=== PATIENT | female | born 1975 | race Caucasian/White ===

== ENCOUNTER 2018-03-01 21:30 | Observation (INO) ==
[2018-03-01] MEDS ORDERED: 0.9 % Sodium Chloride 1,000 ML IVC ONE (22:32)
--- NOTE | 2018-03-01 22:32 | Emergency Department Note ---
Disposition Clinical Impression: Neck pain, Intractable pain Pneumonia Qualifiers: Pneumonia type: due to unspecified organism Laterality: bilateral Lung location : unspecified part of lung Qualified Code(s): J18.9 - Pneumonia, unspecified organism Urinary tract infection Qualifiers: Urinary tract infection type: acute cystitis Hematuria presence: without hematuria Qualified Code(s): N30.00 - Acute cystitis without hematuria Syncope Qualifiers: Syncope type: unspecified Qualified Code(s): R55 - Syncope and collapse Disposition: Admitted As Inpatient Condition: Fair Referrals: NONE,PCP [Primary Care Provider] - Forms: ED Satisfaction Letter Time of Disposition: 01:13 General Adult HPI - General Chief complaint: ED Neck Pain/Injury Stated complaint: Arm and neck pain Time Seen by Provider: 03/01/18 21:32 Source: patient, EMS Limitations: no limitations Nursing Notes Reviewed: Yes Vital Signs Reviewed: Yes - History of Present Illness HPI Narrative: 42-year-old female presents emergency department 2 days after having an episode where she states she passed out possibly. She does not really remember what happened. States that she has upper thoracic paraspinal back pain that radiates into her neck. No fevers. Patient does not know why she passes out. Pain Scale: 7 - Related Data Previous Rx's Medication Instructions Recorded Hydrocodone/Acetaminophen [[place] 1 tab PO Q6H PRN #8 tab 06/20/16 5-325 Tablet] Naproxen [Naprosyn] 500 mg PO BID PRN #15 tablet 06/20/16 Allergies Allergy/AdvReac Type Severity Reaction Status Date / Time sulfamethoxazole AdvReac Shakiness Verified 06/20/16 12:24 [From Bactrim] trimethoprim [From Bactrim] AdvReac Shakiness Verified 06/20/16 12:24 All systems ED: reviewed and negative except as stated. 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 Absent: respiratory distress, accessory muscle use - Cardiovascular Cardiovascular exam: Present: tachycardia - Abdominal Exam Abdominal exam: Present: soft, Non-Tender. Absent: distention, guarding, rebound, rigidity - Extremities Exam Extremities exam: Present: normal capillary refill - Back Exam Back exam: Present: other (Left paraspinal thoracic tenderness to palpation, pain out of proportion) - Neurological Exam Neurological exam: Present: alert, oriented X3 - Psychiatric Psychiatric exam: Present: normal affect, normal mood - Skin Skin exam: Present: warm, dry, intact Course Vital Signs Temperature 98.2 F 03/01/18 21:34 Pulse Rate 110 03/01/18 21:34 Respiratory Rate 18 03/01/18 21:34 Blood Pressure 126/80 03/01/18 21:34 O2 Sat by Pulse Oximetry 98 03/01/18 21:34 Temperature 98.2 F 03/01/18 21:34 Pulse Rate 92 03/02/18 00:47 Respiratory Rate 18 03/02/18 00:47 Blood Pressure 143/106 03/02/18 00:47 O2 Sat by Pulse Oximetry 93 03/02/18 00:47 Oxygen Delivery Oxygen Delivery Room Air Medical Decision Making - [facility] Narrative Medical decision making narrative: 42-year-old female presents emergency department with concern for recurrent syncope, falls, with thoracic back pain as well as cervical neck pain. Patient hemodynamically stable. She appears uncomfortable in the room and she is crying. Reported history of breast cancer. Her currently obtaining a CT scan of the head without contrast. We will also obtain CT scan of the cervical , thoracic, lumbar spine. Obtained EKG. Did not reveal any evidence of arrhythmia, [id number]-[id number]-[id number] syndrome, Brugada syndrome, hypertrophic cardiomyopathy QT prolongation. It did however, reveal changes including Q waves in 1 and AVL as well as new T-wave inversions are as well. Patient not reporting any chest pain. Troponin is not elevated. Head CT did not reveal any acute intracranial abnormality. Cervical spine CT did not reveal any acute abnormality, third thoracic spine was negative, lumbar spine was negative. CT of the chest reveals bilateral airspace disease that appeared to worse in the right middle upper lobe. Patient also had evidence of urinary tract infection. We obtain a urine culture. We will also obtain blood cultures. We will treat patient with Rocephin and azithromycin. Patient agrees to admission for recurrent syncopal episodes, pneumonia, urinary tract infection, back pain. Dr. Castañeda agrees to accept her. Cervical Spine CT 03/01/18 22:24 IMPRESSION: Cervical spine: No acute abnormality of the cervical spine. Thoracic spine: No acute abnormality of the thoracic spine. Mild right upper lobe airspace disease will be discussed on separate chest CT report. Lumbar spine: No acute abnormality of the lumbar spine. D/ / Julio Pennington MD / Julio Pennington MD Interpreting Provider: Julio Pennington MD Head CT 03/01/18 22:24 IMPRESSION: No acute intracranial abnormality. D/ / Cresencio Patino MD / Cresencio Patino MD Interpreting Provider: Cresencio Patino MD Thoracic Spine CT 03/01/18 22:24 IMPRESSION: Cervical spine: No acute abnormality of the cervical spine. Thoracic spine: No acute abnormality of the thoracic spine. Mild right upper lobe airspace disease will be discussed on separate chest CT report. Lumbar spine: No acute abnormality of the lumbar spine. D/ / Julio Pennington MD / Julio Pennington MD Interpreting Provider: Julio Pennington MD Chest CT 03/01/18 22:28 IMPRESSION: Bilateral airspace disease, worse in the right upper lobe. Findings are suspicious for pneumonia. Consider short interval follow-up chest CT within 3 months or when acute issues have resolved. D/ / Julio Pennington MD / Julio Pennington MD Interpreting Provider: Julio Pennington MD Lumbar Spine CT 03/01/18 22:28 IMPRESSION: Cervical spine: No acute abnormality of the cervical spine. Thoracic spine: No acute abnormality of the thoracic spine. Mild right upper lobe airspace disease will be discussed on separate chest CT report. Lumbar spine: No acute abnormality of the lumbar spine. D/ / Julio Pennington MD / Julio Pennington MD Interpreting Provider: Julio Pennington MD - Lab Data Result diagrams: 03/02/18 00:32 03/02/18 00:32 Lab Results 03/02/18 03/02/18 03/02/18 Range/Units 00:28 00:32 00:32 WBC 6.1 (4.3-11.1) K/mcL RBC 4.09 (3.82-4.97) M/mcL Hgb 12.2 (11.5-15.4) g/dL Hct 37.5 (35.3-44.9) % MCV 91.7 (83.0-100.0) fL MCH 29.8 (28.0-33.3) pg MCHC 32.5 (31.6-35.5) g/dL RDW 13.1 (11.5-14.5) % Plt Count 211 (140-400) K/mcL MPV 11.2 (9.4-12.4) fL Immature Gran % 0.2 (0-4) % Seg Neutrophils % 57.4 % Lymphocytes % 33.4 % Monocytes % 6.7 % Eosinophils % 1.8 % Basophils % 0.5 % Neutrophils # 3.5 (1.6-8.9) K/mcL Lymphocytes # 2.1 (0.6-4.6) K/mcL Monocytes # 0.4 (0.0-1.3) K/mcL Eosinophils # 0.1 (0.0-0.6) K/mcL Basophils # 0.0 (0.0-0.2) K/mcL Sodium 143 (136-145) mEq/L Potassium 3.8 (3.5-5.1) mEq/L Chloride 110 H (98-107) mEq/L Carbon Dioxide 28 (23-29) mEq/L BUN 4 L (6-20) mg/dL Creatinine 0.47 L (0.60-1.20) mg/dL Est GFR ( Amer) > 60 (> 60) Est GFR (Non-Af Amer) > 60 (> 60) BUN/Creatinine Ratio 9 (6-26) Glucose 93 (70-105) mg/dL Calculated Osmolality 293 (280-300) Calcium 8.2 L (8.6-10.3) mg/dL Magnesium 1.8 (1.6-2.6) mg/dL Total Bilirubin 0.2 L (0.3-1.0) mg/dL AST 19 (13-39) Units/L ALT 12 (7-52) Units/L Alkaline Phosphatase 54 (34-104) Units/L Serum Total Protein 6.1 L (6.4-8.9) g/dL Albumin 3.6 (3.5-5.7) g/dL Globulin 2.5 (2.4-3.5) g/dL Albumin/Globulin Ratio 1.4 (1.1-2.2) Urine Color Yellow (Yellow) Urine Clarity Clear (Clear) Urine pH 8.0 (5.0-8.0) pH Units Ur Specific [place] 1.011 (1.010-1.025) Urine Protein Negative (Neg-Trace) mg/dL Urine Glucose (UA) Normal (Normal) mg/dL Urine Ketones Negative (Negative) mg/dL Urine Blood Negative (Negative) Urine Nitrite Negative (Negative) Urine Bilirubin Negative (Negative) Urine Urobilinogen Normal (Normal) mg/dL Ur Leukocyte Esterase Large H (Negative) Urine Microscopic RBC 5-15 H (0-3) per hpf Urine Microscopic WBC 50-100 H (0-3) per hpf Ur Squamous Epith Cells Many H (None-Few) per lpf Urine Bacteria Many H (None-Few) per hpf Hyaline Casts None Seen (None-Few) per lpf Ur Culture Indicated? NO. A (NO) - EKG Data EKG #1 EKG attestation: Yes I reviewed and interpreted this EKG. EKG results narrative: 23:49 Heart rate 94 bpm, appearing 151 ms, QRS duration 82 ms, QT 367 ms, QTC 459 ms, right axis deviation. New Q waves in leads 1 and aVL. There are T-wave inversions in the same leads as well. Patient not currently reported chest pain. This in comparison with a previous EKG obtained on December 12, 2016. Attestation Statement - Attestation Attestation: I, Mitch Weaver DO, examined this patient [id number] and my medical decision-making was reviewed with Dr. Sotero Souza, Resident Physician. I agree with the documented findings, disposition and treatment plan as described except to the extent set forth below. Please see my progress notes for details.
[2018-03-01] MEDS ORDERED: *HR* OxyCODONE/APAP 5/325 TABLET PO ONE (23:24)
[2018-03-01] MEDS ORDERED: *HR* FentaNYL (PF) 100 MCG/2 ML VIAL IVP ONE (23:24)
--- NOTE | 2018-03-02 00:10 | Emergency Department Note ---
Disposition Clinical Impression: Pneumonia, Neck pain, Intractable pain, Urinary tract infection, Syncope Disposition: Admitted As Inpatient Condition: Fair Referrals: NONE,PCP [Primary Care Provider] - Forms: ED Satisfaction Letter Time of Disposition: 00:46 General Adult HPI - General Chief complaint: ED Neck Pain/Injury Stated complaint: Arm and neck pain Time Seen by Provider: 03/01/18 21:32 Source: patient, EMS Limitations: no limitations - History of Present Illness Pain Scale: 0 - Related Data Previous Rx's Medication Instructions Recorded Hydrocodone/Acetaminophen [[place] 1 tab PO Q6H PRN #8 tab 06/20/16 5-325 Tablet] Naproxen [Naprosyn] 500 mg PO BID PRN #15 tablet 06/20/16 Allergies Allergy/AdvReac Type Severity Reaction Status Date / Time sulfamethoxazole AdvReac Shakiness Verified 06/20/16 12:24 [From Bactrim] trimethoprim [From Bactrim] AdvReac Shakiness Verified 06/20/16 12:24 Past Medical History - Past Medical History Medical history: Reports: hyperlipidemia, hypertension Psychiatric history: Reports: anxiety, bipolar, depression [employer] history: Reports: other - Social History Smoking Status: Current every day smoker Smokeless Tobacco Status: No Alcohol use: Reports: occasionally Drug use: Reports: marijuana Physical Exam - General Limitations: no limitations General appearance: alert, in no apparent distress Course Vital Signs Temperature 98.2 F 03/01/18 21:34 Pulse Rate 110 03/01/18 21:34 Respiratory Rate 18 03/01/18 21:34 Blood Pressure 126/80 03/01/18 21:34 O2 Sat by Pulse Oximetry 98 03/01/18 21:34 Temperature 98.2 F 03/01/18 21:34 Pulse Rate 92 03/02/18 00:47 Respiratory Rate 18 03/02/18 00:47 Blood Pressure 143/106 03/02/18 00:47 O2 Sat by Pulse Oximetry 93 03/02/18 00:47 Oxygen Delivery Oxygen Delivery Room Air Medical Decision Making - Lab Data Result diagrams: 03/02/18 00:32 Lab Results 03/02/18 03/02/18 Range/Units 00:28 00:32 WBC 6.1 (4.3-11.1) K/mcL RBC 4.09 (3.82-4.97) M/mcL Hgb 12.2 (11.5-15.4) g/dL Hct 37.5 (35.3-44.9) % MCV 91.7 (83.0-100.0) fL MCH 29.8 (28.0-33.3) pg MCHC 32.5 (31.6-35.5) g/dL RDW 13.1 (11.5-14.5) % Plt Count 211 (140-400) K/mcL MPV 11.2 (9.4-12.4) fL Immature Gran % 0.2 (0-4) % Seg Neutrophils % 57.4 % Lymphocytes % 33.4 % Monocytes % 6.7 % Eosinophils % 1.8 % Basophils % 0.5 % Neutrophils # 3.5 (1.6-8.9) K/mcL Lymphocytes # 2.1 (0.6-4.6) K/mcL Monocytes # 0.4 (0.0-1.3) K/mcL Eosinophils # 0.1 (0.0-0.6) K/mcL Basophils # 0.0 (0.0-0.2) K/mcL Urine Color Yellow (Yellow) Urine Clarity Clear (Clear) Urine pH 8.0 (5.0-8.0) pH Units Ur Specific [place] 1.011 (1.010-1.025) Urine Protein Negative (Neg-Trace) mg/dL Urine Glucose (UA) Normal (Normal) mg/dL Urine Ketones Negative (Negative) mg/dL Urine Blood Negative (Negative) Urine Nitrite Negative (Negative) Urine Bilirubin Negative (Negative) Urine Urobilinogen Normal (Normal) mg/dL Ur Leukocyte Esterase Large H (Negative) Urine Microscopic RBC 5-15 H (0-3) per hpf Urine Microscopic WBC 50-100 H (0-3) per hpf Ur Squamous Epith Cells Many H (None-Few) per lpf Urine Bacteria Many H (None-Few) per hpf Hyaline Casts None Seen (None-Few) per lpf Ur Culture Indicated? NO. A (NO) Attestation Statement - Attestation Attestation: I, Mitch Weaver DO, examined this patient [id number] and my medical decision-making was reviewed with Dr. Sotero Souza Resident Physician. I agree with the documented findings, disposition and treatment plan as described except to the extent set forth below. Please see my progress notes for details. 42-year-old female presents to emergency room for evaluation of neck pain and chest back pain. Patient has new diagnosis of breast cancer that was confirmed up at [facility]. During the workup and evaluation the patient decided to leave the hospital. She has not received any further evaluation by hematology oncology at this point. She denies any new complaints outside of pain. Denies any trauma or injury. Denies any fevers or chills chest pain shortness of breath headache vision changes nausea vomiting or diarrhea. Patient on presentation parietal emergency room by EMS. Her vital signs as well as evaluation transit by EMS. Stable. She was wearing a soft neck collar for some unknown reason at this time. She said that it helped with her symptoms considering her neck would not flex forward. Physical exam is concerning with tenderness diffusely across her chest wall and spine. She has no point tenderness or guarding at this time. Her lungs are clear heart is regular. Breast examination was deferred at this point with the known diagnosis of breast cancer. Abdomen is soft nontender nondistended with no guarding no rigidity no peritoneal symptoms. Concern is noted for possible lytic lesions considering the patient has not had a PET scan or evaluation. She will have CT imaging of the cervical thoracic and lumbar spine along with CT of the head. Chest x-ray and pelvic films will be completed along with screening labs and EKG. Disposition pending the full workup treatment course and evaluation. Patient does have description of medical history that is concerning but we have unknown diagnostic history this time. Patient will require further workup and evaluation. See detailed documentation of the physical exam, medical intervention, medical decision-making and disposition. [id number] Patient will be discussed with the hospitals. Suspicion of pneumonia and urinary tract infection were noted. Patient also has intractable pain with her new diagnosis of breast cancer. Discussion will be had for admission for symptomatically controlled stabilization of her condition as well as evaluation by the oncology team at this facility. Patient otherwise clinically stable. Admission process to be established. Dr. Castañeda reviewed the patient's presentation symptoms medical intervention other acute concerns or issues. Patient will be admitted for symptomatic control of her intractable pain on evaluation of her syncope.
[2018-03-02 00:38] LABS: Bilirubin,Urine Negative (Negative); Blood,Urine Negative (Negative); Clarity,Urine Clear (Clear); Color,Urine Yellow (Yellow); Glucose,Urine (UA) Normal (Normal); Ketones,Urine Negative (Negative); Leukocyte Esterase,Urine Large (Negative); Nitrite,Urine Negative (Negative); Protein,Urine Negative (Neg-Trace); Specific Gravity,Urine 1.011 (1.010-1.025); Urobilinogen,Urine Normal (Normal)
[2018-03-02 00:39] LABS: Bacteria,Urine Many per hpf (None-Few); Hyaline Casts,Urine None Seen per lpf (None-Few); Squamous Epithelial Cell,Urine Many per lpf (None-Few); WBC,Urine 50-100 per hpf (0-3)
[2018-03-02] MEDS ORDERED: cefTRIAXone 1,000 MG in Water for inj. (sterile) 20 ML 10 ML IVP ONE (00:45)
[2018-03-02] MEDS ORDERED: Azithromycin 500 MG in D5% in Water 250 ML IVPB ONE (00:45)
[2018-03-02 00:48] LABS: Basophils % 0.5 %; Eosinophils # 0.1 K/mcL (0.0-0.6); Eosinophils % 1.8 %; Hematocrit 37.5 % (35.3-44.9); Hemoglobin 12.2 g/dL (11.5-15.4); Immature Granulocytes % 0.2 % (0-4); Lymphocytes # 2.1 K/mcL (0.6-4.6); Lymphocytes % 33.4 %; Mean Corpuscular HGB Conc 32.5 g/dL (31.6-35.5); Mean Corpuscular Hemoglobin 29.8 pg (28.0-33.3); Mean Corpuscular Volume 91.7 fL (83.0-100.0); Mean Platelet Volume 11.2 fL (9.4-12.4); Monocytes # 0.4 K/mcL (0.0-1.3); Monocytes % 6.7 %; Neutrophils # 3.5 K/mcL (1.6-8.9); Platelet Count 211 K/mcL (140-400); Red Blood Count 4.09 M/mcL (3.82-4.97); Red Cell Distribution Width 13.1 % (11.5-14.5); Segmented Neutrophils % 57.4 %
[2018-03-02 01:02] LABS: Alanine Aminotransferase 12 Units/L (7-52); Albumin 3.6 g/dL (3.5-5.7); Albumin/Globulin Ratio 1.4 (1.1-2.2); Alkaline Phosphatase 54 Units/L (34-104); Aspartate Amino Transferase 19 Units/L (13-39); BUN/Creatinine Ratio 9 (6-26); Bilirubin,Total 0.2 mg/dL (0.3-1.0); Blood Urea Nitrogen 4 mg/dL (6-20); Calcium 8.2 mg/dL (8.6-10.3); Carbon Dioxide 28 mEq/L (23-29); Chloride 110 mEq/L (98-107); Globulin 2.5 g/dL (2.4-3.5); Glucose 93 mg/dL (70-105); Magnesium 1.8 mg/dL (1.6-2.6); Osmolality,Calculated 293 (280-300); Potassium 3.8 mEq/L (3.5-5.1); Sodium 143 mEq/L (136-145); Total Protein 6.1 g/dL (6.4-8.9); eGFR For Non-African Americans > 60 (> 60)
[2018-03-02] MEDS ORDERED: *HR* OxyCODONE/APAP 5/325 TABLET PO PRN (03:08)
[2018-03-02] MEDS ORDERED: *HR* OxyCODONE Immed Rel 5 MG TABLET PO PRN (08:08)
[2018-03-02] MEDS ORDERED: Acetaminophen 325 MG TABLET PO PRN (08:08)
[2018-03-02] MEDS ORDERED: Naloxone 0.4 MG/ML INJ IVP PRN (08:08)
--- NOTE | 2018-03-02 11:38 | Internal Med History&Physical ---
Date of Encounter: 03/02/18 Time of Encounter: 09:40 Internal Medicine - H&P: HPI Chief complaint: back pain Admitted From: Home History of present illness: Ms. Murcia is a 42 year old female with history of tobacco use and left sided breast cancer refusing treatment in the past presented to the ED with upper back pain. Started a few days ago and denies any trauma or exertion. It is associated with bilateral finger numbness. Denies any weakness of upper and lower extremities. No chest pain, shortness of breath, palpitation, orthopnea, PND, or neck swelling. She thinks that she is coughing a little bit more than usual but does not have any significant sputum production. No fever/chills, weight loss, abdominal pain, change in bowel habits, or dysuria. Denies any joint pain or new rash. In the ED, she was afebrile and hemodynamically stable. Investigations were unremarkable with normal CBC, BMP, and TSH. Urinalysis showed leukocyte esterase along with many squamous epithelial cells. Patient had [place] CT scan done which did not show any acute abnormality throughout the cervical/thoracic/lumbar spine but it did demonstrate bilateral airspace disease worse in the right upper lobe. She was started on IV Rocephin and azithromycin and admitted for further management. Of note, prior to entering the room, pt was sleeping comfortably in bed but during the interview, she continuously complained of upper back pain and claims that she did not get any sleep overnight. When she was further questioned about breast cancer, she said she did not want to pursue therapy as "she was scared" but would quickly change the topic back to her pain without elaborating further when attempted to explain the potential devastating outcome of her diagnosis left untreated. Past Med Surg Social Fam HX - Past Medical History Attestation: Yes The following information was validated with the patient. Medical history: cancer Psychiatric history: anxiety, bipolar, depression - Past Surgical History Additional surgical history: d/c - Social History Smoking Status: Current every day smoker Packs per day: 0.5 Smokeless Tobacco Status: No Alcohol use: occasionally Drug use: marijuana - Family History Mother History Unknown: Yes Hx Family Cardiac Disorders: Yes (HTN) Father History Unknown: Yes Internal Medicine - H&P: Meds No Known Home Drugs 03/02/18 [History] 3 Allergy/AdvReac Type Severity Reaction Status Date / Time sulfamethoxazole AdvReac Shakiness Verified 03/02/18 09:58 [From Bactrim] trimethoprim [From Bactrim] AdvReac Shakiness Verified 03/02/18 09:58 All Systems PM: A 10-system review of systems was performed and is negative for pertinent findings except as documented above in the HPI. - Constitutional Vitals: Temp Pulse Resp BP Pulse Ox 98.3 F 79 18 133/81 98 03/02/18 08:12 03/02/18 08:12 03/02/18 08:12 03/02/18 08:12 03/02/18 08:12 Exam: General: Alert and oriented, not in acute distress. HEENT:EOM, pupils equal, round and reactive. Cardiovascular:Normal S1 & S2, No JVD. Pulse regular. Lungs: unable to appreciate any abnormal breath sound, no wheezes/rales Abdomen:Soft, non-tender, no rigidity. MSK:No deformity or swelling, tenderness along the paraspinal region of upper thoracic spine. Neurological: Non-focal exam except for mildly reduced sensation in all 5 fingers and palm bilaterally Skin:Normal color, no rash, no lesions. Pulses:Carotid and radial pulses normal +2. Rest of the physical exam is non contributory Internal Med - H&P Results - Labs CBC & Chem 7: 03/02/18 00:32 03/02/18 00:32 - Assessment and plan (1) Pneumonia Current Visit: Yes Status: Acute Assessment and plan: Her symptoms does not quite match the CT finding and patient also does not have any leukocytosis. Nevertheless, given her diagnosis of breast cancer, will empirically treat with Rocephin and azithromycin and likely to be discharged home tomorrow on oral antibiotics. repeat CT in 3 months per radiology report Qualifiers: Pneumonia type: due to unspecified organism Laterality: bilateral Lung location: unspecified part of lung Qualified Code(s): J18.9 - Pneumonia, unspecified organism (2) Upper back pain Current Visit: Yes Status: Acute Assessment and plan: Appears to be related to back spasm. Numbness of the fingers raise suspicion for possible radiculopathy/neuropathy but no obvious canal narrowing were demonstrated on CT spines Her behavior as described in the history of present illness also raises concern for possible drug abuse is a patient seems to be fixated on the pain management mattered and talking about her diagnosis of breast cancer. will try to manage with flexeril and neurontin rather than opioids. Please use opioids sparingly (3) Tobacco abuse Current Visit: Yes Status: Acute Assessment and plan: Smoking cessation counseling done Offered nicotine replacement therapy which patient refused (4) Breast cancer Current Visit: Yes Status: Acute Assessment and plan: Apparently was diagnosed 5 years ago, no records available. No evidence of bony metastases on CT spines Follow-up outpatient Qualifiers: Breast location: unspecified site of breast Estrogen receptor status: unspecified Patient sex: female Laterality: left Qualified Code(s): C50.912 - Malignant neoplasm of unspecified site of left female breast (5) DVT prophylaxis Current Visit: Yes Status: Acute Assessment and plan: Subcutaneous heparin - Time Spent With Patient Total time spent is greater than 50% in coordination of care (as documented) at patient's floor/unit and/or counseling patient:
[2018-03-02] MEDS: *HR* HYDROcodone/Acet 5/325 mg TABLET PO PRN ×2 (13:35→23:05)
[2018-03-02] MEDS: Gabapentin 100 MG CAPSULE PO SCH ×2 (15:29→21:41)
[2018-03-02] MEDS: *HR* Heparin 5,000 UNIT/ML VIAL SQ SCH (18:16)
[2018-03-02] MEDS ORDERED: Azithromycin 500 MG in D5% in Water 250 ML IVPB SCH (21:00)
[2018-03-02] MEDS ORDERED: cefTRIAXone 1,000 MG in Water for inj. (sterile) 20 ML 10 ML IVP SCH (21:00)
[2018-03-03 03:47] LABS: Basophils % 0.5 %; Eosinophils # 0.2 K/mcL (0.0-0.6); Eosinophils % 2.5 %; Hematocrit 37.9 % (35.3-44.9); Hemoglobin 12.6 g/dL (11.5-15.4); Immature Granulocytes % 0.3 % (0-4); Lymphocytes # 2.5 K/mcL (0.6-4.6); Lymphocytes % 31.9 %; Mean Corpuscular HGB Conc 33.2 g/dL (31.6-35.5); Mean Corpuscular Hemoglobin 29.6 pg (28.0-33.3); Mean Platelet Volume 11.4 fL (9.4-12.4); Monocytes # 0.5 K/mcL (0.0-1.3); Neutrophils # 4.6 K/mcL (1.6-8.9); Platelet Count 233 K/mcL (140-400); Red Blood Count 4.26 M/mcL (3.82-4.97); Segmented Neutrophils % 58.8 %
[2018-03-03 04:00] LABS: BUN/Creatinine Ratio 23 (6-26); Blood Urea Nitrogen 12 mg/dL (6-20); Calcium 9.1 mg/dL (8.6-10.3); Carbon Dioxide 27 mEq/L (23-29); Chloride 102 mEq/L (98-107); Glucose 106 mg/dL (70-105); Osmolality,Calculated 282 (280-300); Potassium 3.8 mEq/L (3.5-5.1); Sodium 136 mEq/L (136-145); eGFR For Non-African Americans > 60 (> 60)
[2018-03-03] MEDS: *HR* HYDROcodone/Acet 5/325 mg TABLET PO PRN (06:30)
[2018-03-03] MEDS: *HR* Heparin 5,000 UNIT/ML VIAL SQ SCH (06:31)
[2018-03-03 08:03] VITALS: BP 115/76
--- NOTE | 2018-03-03 08:26 | Discharge Summary ---
- NOTES TO OUTPATIENT PROVIDER Notes to Outpatient Provider: 42-year-old with history of presyncopal left breast cancer not on treatment was admitted for pneumonia without sepsis. Was treated with 2 day course of IV Rocephin and azithromycin which is transitioned to by mouth Levaquin for the next 5 days. Continues to refuse treatment for her breast cancer. Date of Encounter: 03/03/18 Time of Encounter: 08:10 - Discharge Diagnosis (1) Pneumonia Priority: Primary Status: Acute Qualifiers: Pneumonia type: due to unspecified organism Laterality: bilateral Lung location: unspecified part of lung Qualified Code(s): J18.9 - Pneumonia, unspecified organism (2) Upper back pain Priority: Secondary Status: Acute (3) Tobacco abuse Priority: Secondary Status: Acute (4) Breast cancer Priority: Secondary Status: Acute Qualifiers: Breast location: unspecified site of breast Estrogen receptor status: unspecified Patient sex: female Laterality: left Qualified Code(s): C50.912 - Malignant neoplasm of unspecified site of left female breast (5) DVT prophylaxis Priority: Secondary Status: Acute Hospital course: Ms. Murcia is a 42 year old female was presumably diagnosed with left-sided breast cancer, currently not on treatment, presented to the ED with bilateral upper back pain. She was incidentally found to have bilateral airspace disease worse in the right upper lobe. No leukocytosis, no SIRS criteria. Started on IV Rocephin and azithromycin and clinically improved after 2 days. She also complained of tingling/numbness of both hands which was mildly relieved with low dose of gabapentin which she will be discharged on. She was advised to follow-up with the oncology for ? Left breast cancer but declined. - Time Spent with Patient Total time spent providing and/or coordinating discharge services: Greater than 30 minutes - Discharge Medications Prescriptions: HYDROcodone/Acet 5/325 mg [[place] 5-325 mg] 1 tab PO Q6HR PRN 2 Days #8 tablet PRN Reason: Severe Pain Gabapentin [Neurontin] 100 mg PO TID #12 capsule Home Medications: Gabapentin [Neurontin] 100 mg PO TID #12 capsule 03/03/18 [Rx] HYDROcodone/Acet 5/325 mg [[place] 5-325 mg] 1 tab PO Q6HR PRN 2 Days #8 tablet [Rx] Allergies/Adverse Reactions: 3 Allergy/AdvReac Type Severity Reaction Status Date / Time sulfamethoxazole AdvReac Shakiness Verified 03/02/18 09:58 [From Bactrim] trimethoprim [From Bactrim] AdvReac Shakiness Verified 03/02/18 09:58 Date of admission: 03/02/18 01:21 Primary care physician: PCP NONE - Constitutional Vitals: Temp Pulse Resp BP Pulse Ox 98.1 F 75 16 115/76 97 03/03/18 07:59 03/03/18 07:59 03/03/18 07:59 03/03/18 07:59 03/03/18 07:59 Exam: General: Alert and oriented, not in acute distress. HEENT:EOM, pupils equal, round and reactive. Cardiovascular:Normal S1 & S2, No JVD. Pulse regular. Lungs: unable to appreciate any abnormal breath sound, no wheezes/rales Abdomen:Soft, non-tender, no rigidity. MSK:No deformity or swelling, tenderness along the paraspinal region of upper thoracic spine. Neurological: Non-focal exam except for mildly reduced sensation in all 5 fingers and palm bilaterally Skin:Normal color, no rash, no lesions. Pulses:Carotid and radial pulses normal +2. Rest of the physical exam is non contributory - Patient Status Disposition: Home, Self-Care Condition: Fair - Discharge Instructions Instructions: Pneumonia (DC) Follow Up With: NONE,PCP [Primary Care Provider] - Additional Instructions: Can follow up in [facility] - Diet and Activity Activity: resume usual activities as tolerated Diet: regular diet
--- NOTE | 2018-03-03 09:20 | Electrocardiograph Report ---
[place] [id number] Test Date: 2018-03-01 Pat Name: Leticia Murcia Department: EXAM11 Room: 3B21 Gender: F [employer] Specialist: : [id number] Requested By: Sotero Souza Order Number: [id number] Reading MD: Nilay Morrison Measurements Intervals [place] Rate: 94 P: 103 GA: 151 QRS: 113 QRSD: 82 T: 121 QT: 367 QTc: 459 Interpretive Statements Sinus rhythm Consider left atrial enlargement Limb lead reversal Recommend repeat ECG Electronically Signed On 03-03-2018 9:18:39 EDT by Nilay Morrison
[2018-03-03] MEDS ORDERED: cefTRIAXone 1,000 MG in Water for inj. (sterile) 20 ML 10 ML IVP SCH (21:00)
== END 2018-03-03 09:48 | disposition home or self-care (01) ==
LOC: EMEROOARM 21:30 → 3BNU 21:30 → SUATTDRO 03-02 01:21 → 3BNU 03-02 02:20
PROVIDERS: ADMIT Pediatrics; ATTEND Internal Medicine

== ENCOUNTER 2021-05-08 13:16 | Inpatient (IN) ==
[2021-05-08 14:07] LABS: Basophils % 0.6 %; Eosinophils # 0.1 K/mcL (0.0-0.6); Eosinophils % 1.7 %; Hematocrit 41.6 % (35.3-44.9); Hemoglobin 13.4 g/dL (11.5-15.4); Immature Granulocytes % 0.2 % (0-4); Lymphocytes # 2.4 K/mcL (0.6-4.6); Lymphocytes % 37.8 %; Mean Corpuscular HGB Conc 32.2 g/dL (31.6-35.5); Mean Corpuscular Hemoglobin 29.7 pg (28.0-33.3); Mean Corpuscular Volume 92.2 fL (83.0-100.0); Mean Platelet Volume 11.5 fL (9.4-12.4); Monocytes # 0.5 K/mcL (0.0-1.3); Monocytes % 7.2 %; Neutrophils # 3.4 K/mcL (1.6-8.9); Platelet Count 240 K/mcL (140-400); Red Blood Count 4.51 M/mcL (3.82-4.97); Red Cell Distribution Width 12.3 % (11.5-14.5); Segmented Neutrophils % 52.5 %; White Blood Count 6.4 K/mcL (4.3-11.1)
[2021-05-08 14:09] LABS: Bacteria,Urine Few per hpf (None-Few); Bilirubin,Urine Negative (Negative); Blood,Urine Negative (Negative); Clarity,Urine Clear (Clear); Color,Urine Yellow (Yellow); Glucose,Urine (UA) Normal (Normal); Ketones,Urine Negative (Negative); Leukocyte Esterase,Urine Negative (Negative); Mucus,Urine Many per lpf (None-Few); Nitrite,Urine Negative (Negative); Protein,Urine 30 mg/dL (Neg-Trace); RBC,Urine 0-3 per hpf (0-3); Specific Gravity,Urine > 1.030 (1.010-1.025); Squamous Epithelial Cell,Urine Moderate per hpf (None-Few); Urobilinogen,Urine Normal (Normal); WBC,Urine 0-3 per hpf (0-3)
[2021-05-08 14:22] LABS: Amphetamine Screen,Urine Positive ng/mL (Cutoff=1000); Barbiturate Screen,Urine Negative ng/mL (Cutoff=200); Benzodiazepines Screen,Urine Negative ng/mL (Cutoff=200); Cannabinoid Screen,Urine Positive ng/mL (Cutoff = 50); Cocaine Screen,Urine Negative ng/mL (Cutoff= 300); Opiate Screen,Urine Negative ng/mL (Cutoff=300); Phencyclidine Screen,Urine Negative ng/mL (Cutoff=25)
[2021-05-08 14:28] LABS: Acetaminophen < 10 mcg/mL (10-20); Alanine Aminotransferase 12 Units/L (7-52); Albumin 4.5 g/dL (3.5-5.7); Albumin/Globulin Ratio 1.9 (1.1-2.2); Alkaline Phosphatase 61 Units/L (34-104); Aspartate Amino Transferase 13 Units/L (13-39); BUN/Creatinine Ratio 18 (6-26); Bilirubin,Indirect 0.4 mg/dL (0.0-1.0); Bilirubin,Total 0.4 mg/dL (0.3-1.0); Blood Urea Nitrogen 11 mg/dL (6-20); Calcium 9.2 mg/dL (8.6-10.3); Carbon Dioxide 30 mEq/L (23-29); Chloride 103 mEq/L (98-107); Ethanol < 10 mg/dL (Less than 10); Globulin 2.4 g/dL (2.4-3.5); Glucose 96 mg/dL (70-105); Osmolality,Calculated 285 (280-300); Potassium 3.5 mEq/L (3.5-5.1); Salicylate < 2.5 mg/dL (15.0-30.0); Sodium 138 mEq/L (136-145); Total Protein 6.9 g/dL (6.4-8.9); eGFR For African Americans > 60 (> 60); eGFR For Non-African Americans > 60 (> 60)
[2021-05-08] MEDS ORDERED: Acetaminophen 325 MG TABLET PO ONE (15:18)
[2021-05-08 18:00] LABS: Influenza A PCR Negative (Negative); Influenza B PCR Negative (Negative); Resp. Syncytial Virus PCR Negative (Negative); SARS-CoV-2 by PCR (In House) Negative (Negative)
[2021-05-08] MEDS ORDERED: haloperidoL 5 MG TABLET PO PRN (18:53)
[2021-05-08] MEDS ORDERED: Haloperidol Lactate 5 MG/ML VIAL IM PRN (18:53)
[2021-05-08] MEDS ORDERED: MOM Conc 10 ML UD.LIQ PO PRN (18:53)
[2021-05-08] MEDS ORDERED: traZODone 50 MG TABLET PO PRN (18:53)
[2021-05-08] MEDS: Acetaminophen 325 MG TABLET PO PRN (21:15)
[2021-05-08] MEDS: hydrOXYzine pamoate 25 MG CAPSULE PO PRN (21:15)
[2021-05-08] MEDS ORDERED: Nicotine 21 MG PATCH.TD24 TD SCH (21:45)
[2021-05-09] MEDS: hydrOXYzine pamoate 25 MG CAPSULE PO PRN ×3 (08:54→20:35)
[2021-05-09] MEDS: QUEtiapine Fumarate 100 MG TABLET PO SCH (20:37)
[2021-05-10] MEDS: hydrOXYzine pamoate 25 MG CAPSULE PO PRN ×2 (08:31→14:51)
[2021-05-10] MEDS: Nicotine 21 MG PATCH.TD24 TD SCH (09:27)
[2021-05-10] MEDS: QUEtiapine Fumarate 100 MG TABLET PO SCH (21:08)
[2021-05-10] MEDS: traZODone 50 MG TABLET PO SCH (21:08)
[2021-05-11] MEDS: Nicotine 21 MG PATCH.TD24 TD SCH (09:15)
[2021-05-11] MEDS: hydrOXYzine pamoate 25 MG CAPSULE PO PRN ×3 (09:17→21:09)
[2021-05-11] MEDS: Acetaminophen 325 MG TABLET PO PRN ×2 (16:59→21:09)
[2021-05-11] MEDS: traZODone 50 MG TABLET PO SCH (21:09)
[2021-05-11] MEDS: QUEtiapine Fumarate 100 MG TABLET PO SCH (21:10)
[2021-05-12] MEDS: Nicotine 21 MG PATCH.TD24 TD SCH (09:00)
[2021-05-12 09:21] VITALS: BP 125/88; PULSE 67; TEMP 98.5; O2SAT 98
== END 2021-05-12 13:20 | disposition home or self-care (01) | DRG 754 ==
LOC: EMEROOARM 13:16 → 1ANU 18:42 → INTOOBSV 18:42 → 1ANU 21:03
PROVIDERS: ADMIT Psychiatry & Neurology Psychiatry; ATTEND Psychiatry & Neurology Psychiatry